=== PATIENT | female | born 1975 | race African-American/Black ===

== ENCOUNTER 2016-09-06 09:02 | Emergency (ER) | payer MEDICAID, OTHER ==
[~2016-09-06] VITALS: Ht 154.9 cm; Wt 80.0 kg
[2016-09-06 09:04] VITALS: BP 113/70; PULSE 75; RESP 16; TEMP 98.2; O2SAT 97
[2016-09-06 09:14] VITALS: BP 120/75; PULSE 95; RESP 26; O2SAT 99
[2016-09-06] MEDS ORDERED: ALBU6.7H INH (09:14)
[2016-09-06] MEDS: RESP: ALBUTEROL 2.5 MG/IPRATROPIUM 0.5 MG NEB (SCH) INH (09:38)
[2016-09-06] MEDS ORDERED: SODIUM CHLORIDE 0.9% FLUSH 5 ML FLUSH IVF PRN (09:45)
[2016-09-06] MEDS ORDERED: predniSONE 20 MG TAB PO ONE (09:45)
--- NOTE | 2016-09-06 10:10 | PD ---
HPI Chief Complaint: Respiratory Symptoms Time Seen by Provider: 09:27 Travel History International Travel<30 days: No Contact w/Intl Traveler<30days: No Traveled to known affect area: No History of Present Illness HPI 41-year-old female came to the emergency room with history of shortness of breath, nasal congestion, cough that has been going on for past 1 week. Patient has history of asthma and she ran out of her inhaler. She does not have a primary care currently. Vital signs were stable. She is able to speak in full sentences and one breath. No history of fever or chills. Patient has never been in the ICU or intubated. Patient is not a smoker. [facility] Past Medical History Narrative Medical List of her past medical history is reviewed from the nursing note. Asthma: Yes Diminished Hearing: No Inguinal Hernia: Yes Respiratory: Yes (ASTHMA) Sickle Cell Disease: Yes (SICKLE CELL TRAIT) ?: Not Menopausal: No : 9 Para: 8 Miscarriage: 1 : 0 Tubal Ligation: Yes Past Surgical History Abdominal Surgery: Yes (hernia repair) Other Surgery: Yes (bilateral carpal tunnel) Social History Alcohol Use: No Tobacco Use: No Substance Use: No Allergies-Medications (Allergen,Severity, Reaction): Coded Allergies: Erythromycin (Unverified Allergy, Mild, HIVES & GI DISTRESS, 09/06/16) Latex (Unverified Allergy, Mild, 09/06/16) Comments List of her allergies reviewed from the nursing note. Reported Meds & Prescriptions Reported Meds & Active Scripts Active Bactrim DS (Sulfamethoxazole-Trimethoprim) 800-160 Mg Tab 1 Tab PO BID Prednisone 20 Mg Tab 20 Mg PO BID 5 Days Ventolin Hfa 18 GM Inh (Albuterol Sulfate) 90 Mcg/Act Aer 2 Puff INH Q4-6H PRN Reported Proventil Hfa 6.7 GM Inh (Albuterol Sulfate) 90 Mcg/Act Aer 2 Puff INH Q4-6H PRN Narrative Medication List of her home medications reviewed from the nursing note. Review of Systems Except as stated in HPI: all other systems reviewed are Neg Physical Exam Narrative GENERAL: Awake, alert, moderate distress SKIN: Warm and dry. HEAD: Atraumatic. Normocephalic. EYES: Pupils equal and round. No scleral icterus. No injection or drainage. ENT: No nasal bleeding or discharge. Mucous membranes pink and moist. Nasal congestion and swollen turbinates NECK: Trachea midline. No JVD. CARDIOVASCULAR: Regular rate and rhythm. No murmur appreciated. RESPIRATORY: No accessory muscle use. Decreased air entry with bilateral wheeze GASTROINTESTINAL: Abdomen soft, non-tender, nondistended. Hepatic and splenic margins not palpable. MUSCULOSKELETAL: No obvious deformities. No clubbing. No cyanosis. No edema. NEUROLOGICAL: Awake and alert. No obvious cranial nerve deficits. Motor grossly within normal limits. Normal speech. PSYCHIATRIC: Appropriate mood and affect; insight and judgment normal. Data Data Last Documented VS Vital Signs Date Time Temp Pulse Resp B/P Pulse Ox O2 Delivery O2 Flow Rate FiO2 09/06/16 09:14 95 26 120/75 99 09/06/16 09:04 98.2 Orders Ecg Monitoring (09/06/16 09:32) Iv Access Insert/Monitor (09/06/16 09:32) Oximetry (09/06/16 09:32) Oxygen Administration (09/06/16 09:32) Prednisone (Deltasone) (09/06/16 09:45) Albuterol-Ipratropium Neb (Duoneb Neb) (09/06/16 09:45) Sodium Chloride 0.9% Flush (Ns Flush) (09/06/16 09:45) Albuterol Neb (Albuterol Neb) (09/06/16 10:15) MDM Medical Decision Making Medical Screen Exam Complete: Yes Emergency Medical Condition: Yes Medical Record Reviewed: Yes Differential Diagnosis Acute asthma exacerbation, seasonal allergies, sinusitis Narrative Course 11:20 AM patient was initially given 3 duo nebs along with prednisone. Upon reassessing her she said she felt better but there was still audible wheezes bilaterally. I ordered 3 more albuterol nebulizer and I just reassessed her. Air entry is better and the wheezing sounds to be better. Patient is comfortable going home. I'll discharge her home with albuterol, Z-Nirmal and prednisone prescriptions. Procedures EKG Prior to Arrival: No Diagnosis Primary Impression: Acute asthma exacerbation Qualified Code: J45.901 - Asthma with acute exacerbation, unspecified asthma severity Additional Impression: Sinusitis Qualified Code: J01.90 - Acute sinusitis, recurrence not specified, unspecified location Referrals: Primary Care Physician 2 days Additional Instructions: Please return to the ER if the condition worsens or any other new concerns. Otherwise follow-up with your primary care. Take the medications as per the prescription direction. Med/Other Pt SpecificInfo: Prescription(s) given Scripts Sulfamethoxazole-Trimethoprim (Bactrim DS)800-160 Mg Tab1 Tab PO BID #14 TAB Ref 0 Prov:Corby Sheffield MD 09/06/16 Prednisone 20 Mg Tab20 Mg PO BID 5 Days Ref 0 Prov:Corby Sheffield MD 09/06/16 Albuterol 18 GM Inh (Ventolin Hfa 18 GM Inh)90 Mcg/Act Aer2 Puff INH Q4-6H PRN ( SHORTNESS OF BREATH) #1 INHALER Ref 0 Prov:Corby Sheffield MD 09/06/16 Disposition: 01 DISCHARGE HOME Condition: Stable Corby Sheffield MD Sep 06, 2016 10:10
[2016-09-06] MEDS: RESP: ALBUTEROL 2.5 MG/3 ML NEB (SCH) INH (10:26)
[2016-09-06] MEDS ORDERED: VENTAER INH (11:23)
[2016-09-06] MEDS ORDERED: PRED20 PO (11:23)
[2016-09-06] MEDS ORDERED: BACT800T5 PO (11:24)
== END 2016-09-06 12:29 | disposition home or self-care (01) ==
LOC: NEPC 09:02
DX: J45.901 Unspecified asthma with (acute) exacerbation (principal); J32.9 Chronic sinusitis, unspecified; D57.3 Sickle-cell trait
CPT/HCPCS: 94640; 94664; 99283; J7512; J7613

== ENCOUNTER 2018-01-05 20:33 | Emergency (ER) | payer MEDICAID ==
[~2018-01-05] VITALS: Ht 162.6 cm; Wt 80.0 kg
[~2018-01-05 20:33] MED LIST: ALBU6.7H INH; BACT800T5 PO; PRED20 PO; VENTAER INH
[2018-01-05 21:13] VITALS: BP 127/81; PULSE 107; RESP 20; TEMP 99.2; O2SAT 100
[2018-01-05] MEDS ORDERED: METOCLOPRAMIDE HCL 10 MG/2 ML VIAL IV PUSH ONE (21:30)
[2018-01-05] MEDS ORDERED: CLINDAMYCIN 600 MG/NS PREMIX 50 ML IV ONE (21:30)
[2018-01-05] MEDS ORDERED: MORPHINE SULFATE 4 MG/ML INJ IV PUSH ONE (21:30)
[2018-01-05] MEDS ORDERED: KETOROLAC TROMETHAMINE 30 MG/ML (IVP) VIAL IV PUSH ONE (21:30)
--- NOTE | 2018-01-05 21:42 | PD ---
HPI Chief Complaint: Skin Problem Time Seen by Provider: 21:19 Travel History International Travel<30 days: No Contact w/Intl Traveler<30days: No Traveled to known affect area: No History of Present Illness HPI 42-year-old female that presents to the ED for evaluation of left chest infection and pain. Started yesterday. Avenue like a bug bite. Became more painful and swollen today while working. Per patient it causes her nausea and severe chest pain. Pain is 8/10 with touch. No history of this in the past. No other medical issues. No injury. Mass is in the lower area of the breast. PFSH Past Medical History Asthma: Yes Diminished Hearing: No Inguinal Hernia: Yes Respiratory: Yes (ASTHMA) Immunizations Current: Yes Sickle Cell Disease: Yes (SICKLE CELL TRAIT) Tetanus Vaccination: Unknown Influenza Vaccination: Yes ?: Not LMP: 518 Menopausal: No : 9 Para: 8 Miscarriage: 1 : 0 Tubal Ligation: Yes Past Surgical History Abdominal Surgery: Yes (hernia repair) Other Surgery: Yes (bilateral carpal tunnel) Social History Alcohol Use: No Tobacco Use: No Substance Use: No Allergies-Medications (Allergen,Severity, Reaction): Coded Allergies: erythromycin base (Unverified Allergy, Mild, HIVES & GI DISTRESS, 01/05/18) latex (Unverified Allergy, Mild, 01/05/18) Reported Meds & Prescriptions Reported Meds & Active Scripts Active Clindamycin (Clindamycin HCl) 150 Mg Cap 300 Mg PO Q8HR [address] (Diclofenac Sodium) 75 Mg Tabdr 75 Mg PO BID PRN Hydrocodone-Acetaminophen 5-325 mg Tab 1 Tab PO Q6H PRN Bactrim DS (Sulfamethoxazole-Trimethoprim) 800-160 Mg Tab 1 Tab PO BID Review of Systems Except as stated in HPI: all other systems reviewed are Neg Physical Exam Narrative GENERAL: SKIN: Warm and dry. Patient has a small opening of about less than 0.2 mms with an area of induration of about 6 cms in diameter, no purulence noted. Warm and red. HEAD: Atraumatic. Normocephalic. EYES: Pupils equal and round. No scleral icterus. No injection or drainage. ENT: No nasal bleeding or discharge. Mucous membranes pink and moist. Tongue is midline. No uvula deviation. NECK: Trachea midline. No JVD. CARDIOVASCULAR: Regular rate and rhythm. No murmurs, S3, S4. RESPIRATORY: No accessory muscle use. Clear to auscultation. Breath sounds equal bilaterally. GASTROINTESTINAL: Abdomen soft, non-tender, nondistended. Hepatic and splenic margins not palpable. MUSCULOSKELETAL: Extremities without clubbing, cyanosis, or edema. No obvious deformities. Full ROM of the upper and lower extremities bilaterally. 2+ pulses bilaterally. NEUROLOGICAL: Awake and alert. No obvious cranial nerve deficits. Motor grossly within normal limits. Five out of 5 muscle strength in the arms and legs. Normal speech. PSYCHIATRIC: Appropriate mood and affect; insight and judgment normal. Data Data Last Documented VS Vital Signs Date Time Temp Pulse Resp B/P (MAP) Pulse Ox O2 Delivery O2 Flow Rate FiO2 01/05/18 21:13 99.2 107 20 127/81 (96) 100 Orders Orders Complete Blood Count With Diff (01/05/18 21:25) Basic Metabolic Panel (Bmp) (01/05/18 21:25) Blood Culture (01/05/18 21:25) Magnesium (Mg) (01/05/18 21:25) Wound Culture And Gram Stain (01/05/18 21:25) Iv Access Insert/Monitor (01/05/18 21:25) Clindamycin 600 Mg/Ns Premix (Cleocin 60 (01/05/18 21:30) Ketorolac Inj (Toradol Inj) (01/05/18 21:30) Us Breast Unilateral (01/05/18 ) Morphine Inj (Morphine Inj) (01/05/18 21:30) Metoclopramide Inj (Reglan Inj) (01/05/18 21:30) Ed Discharge Order (01/05/18 22:55) Labs Laboratory Tests Test 01/05/18 22:10 White Blood Count 9.8 TH/MM3 Red Blood Count 4.40 MIL/MM3 Hemoglobin 10.3 GM/DL Hematocrit 32.2 % Mean Corpuscular Volume 73.1 FL Mean Corpuscular Hemoglobin 23.5 PG Mean Corpuscular Hemoglobin Concent 32.1 % Red Cell Distribution Width 17.0 % Platelet Count 408 TH/MM3 Mean Platelet Volume 7.8 FL Neutrophils (%) (Auto) 72.7 % Lymphocytes (%) (Auto) 15.9 % Monocytes (%) (Auto) 9.3 % Eosinophils (%) (Auto) 1.2 % Basophils (%) (Auto) 0.9 % Neutrophils # (Auto) 7.1 TH/MM3 Lymphocytes # (Auto) 1.6 TH/MM3 Monocytes # (Auto) 0.9 TH/MM3 Eosinophils # (Auto) 0.1 TH/MM3 Basophils # (Auto) 0.1 TH/MM3 CBC Comment DIFF FINAL Differential Comment Blood Urea Nitrogen 7 MG/DL Creatinine 0.90 MG/DL Random Glucose 94 MG/DL Calcium Level 8.7 MG/DL Magnesium Level 2.1 MG/DL Sodium Level 139 MEQ/L Potassium Level 3.6 MEQ/L Chloride Level 103 MEQ/L Carbon Dioxide Level 27.4 MEQ/L Anion Gap 9 MEQ/L Estimat Glomerular Filtration Rate 83 ML/MIN [facility] Medical Decision Making Medical Screen Exam Complete: Yes Emergency Medical Condition: Yes Medical Record Reviewed: Yes Interpretation(s) CBC & BMP Diagram 01/05/18 22:10 Calcium Level 8.7, Magnesium Level 2.1 Last Impressions Breast Ultrasound 01/05/18 0000 Signed Impressions: CONCLUSION: No evidence of abscess. Differential Diagnosis abscess vs cellulitis vs skin infection Narrative Course 42 yo female here for mass to left breast. Labs and imaging ordered. Started on IV pain meds and antibiotics. Labs and imaging showed no sign of abscess per US. Likely induration and possible early cellulitis as infection started per patient today. Given IV pain meds and anitbiotics. Will give prescription for clindamycin, bactrim, lortab and diclofenac sodium. Told to follow up with PCP. See ED if symptomatic symptoms. Warm compresses. REcheck in 48 hrs if not better. Case discussed with my attending Dr Alvarez who agrees with plan. Diagnosis Primary Impression: Cellulitis Qualified Codes: L03.818 - Cellulitis of other sites Patient Instructions: General Instructions, Narcotic given in the ED Departure Forms: Tests/Procedures, Work Release Enter return to work date: January 07, 2018 Additional Instructions: Take medications as prescribed. Follow-up with PCP. See ED for any worsening symptoms. Do not drink or drive while taking pain medication. Apply ice or heat as needed for pain Recheck in 48 hrs if no improvement at all. Med/Other Pt SpecificInfo: Prescription(s) given, Wound Care Scripts Clindamycin (Clindamycin) 150 Mg Cap 300 MG PO Q8HR for Infection for 10 Days, CAP 0 Refills Prov: Staci Alvarez MD 01/05/[address] (Diclofenac Sodium DR) 75 Mg Tabdr 75 MG PO BID Y for PAIN SCALE 1 TO 10, #20 TAB 0 Refills Prov: Staci Alvarez MD 01/05/18 Hydrocodone-Acetaminophen (Hydrocodone-Acetaminophen) 5-325 mg Tab 1 TAB PO Q6H Y for PAIN, #10 TAB 0 Refills Prov: Staci Alvarez MD 01/05/18 Sulfamethoxazole-Trimethoprim (Bactrim DS) 800-160 Mg Tab 1 TAB PO BID for Infection, #14 TAB 0 Refills Prov: Staci Alvarez MD 01/05/18 Disposition: 01 DISCHARGE HOME Condition: Isma Steel January 05, 2018 21:42
[2018-01-05 22:30] LABS: AUTOMATED NEUTROPHIL # 7.1 TH/MM3 (1.8-7.7); BASOPHIL # 0.1 TH/MM3 (0-0.2); BASOPHIL % 0.9 % (0.0-2.0); EOSINOPHIL # 0.1 TH/MM3 (0-0.4); EOSINOPHIL % 1.2 % (0.0-4.0); HEMATOCRIT 32.2 % (35.0-46.0); HEMOGLOBIN 10.3 GM/DL (11.6-15.3); LYMPH % 15.9 % (9.0-44.0); LYMPHOCYTE # 1.6 TH/MM3 (1.0-4.8); MEAN CELL VOLUME 73.1 FL (80.0-100.0); MEAN CORPUSCULAR HEMOGLOBIN 23.5 PG (27.0-34.0); MEAN CORPUSCULAR HGB CONC 32.1 % (32.0-36.0); MEAN PLATELET VOLUME 7.8 FL (7.0-11.0); MONO % 9.3 % (0.0-8.0); MONOCYTE # 0.9 TH/MM3 (0-0.9); NEUT % 72.7 % (16.0-70.0); PLATELET COUNT 408 TH/MM3 (150-450); WHITE BLOOD COUNT 9.8 TH/MM3 (4.0-11.0)
[2018-01-05 22:42] LABS: BICARBONATE 27.4 MEQ/L (21.0-32.0); CALCIUM 8.7 MG/DL (8.5-10.1); CREATININE 0.9 MG/DL (0.50-1.00); MAGNESIUM 2.1 MG/DL (1.5-2.5)
--- NOTE | 2018-01-05 22:49 | RADRPT ---
EXAM DATE: 01/05/2018 10:40 PM EDT AGE/SEX: 42 years / Female INDICATIONS: Left breast abscess. CLINICAL DATA: This is the patient's initial encounter. Patient reports that signs and symptoms have been present for 1 day and indicates a pain score of 6/10. MEDICAL/SURGICAL HISTORY: Asthma. Inguinal hernia. Sickle cell trait. . Hernia repair. Tubal ligation. Neck surgery. Bilateral carpal tunnel surgery. COMPARISON: No prior [place] exams available for comparison. TECHNIQUE: Real-time ultrasound examination was performed using a high-frequency transducer. Conven tional and compound scanning techniques were used. FINDINGS: Sonographic evaluation of the breast fails to reveal any loculated fluid collections. CONCLUSION: No evidence of abscess. Electronically signed by: Saw Dawson MD 01/05/2018 10:47 PM EDT
[2018-01-05] MEDS ORDERED: HYDR-3516 PO (22:55)
[2018-01-05] MEDS ORDERED: DICL75TA PO (22:55)
[2018-01-05] MEDS ORDERED: BACT800T5 PO (22:55)
[2018-01-05] MEDS ORDERED: CLIN150C14 PO (22:55)
[2018-01-05 22:58] VITALS: BP 114/72; PULSE 82; RESP 16; O2SAT 99
[2018-01-05 23:48] VITALS: BP 117/73
== END 2018-01-06 00:05 | disposition home or self-care (01) ==
LOC: NEPE 20:33
DX: L03.818 Cellulitis of other sites (principal); N63.20 Unspecified lump in the left breast, unspecified quadrant
CPT/HCPCS: 76642; 80048; 83735; 85025; 86403; 87040; 87070; 87186; 96365; 96375; 99284; J1885; J2270; J2765; 87205